=== PATIENT | female | born 1950 | race Caucasian/White ===

== ENCOUNTER 2017-06-25 13:26 | Observation (INO) | payer MEDICARE, OTHER ==
[~2017-06-25] VITALS: Ht 165.1 cm; Wt 58.0 kg
--- NOTE | 2017-06-25 09:20 | MH ---
cc: CARMEN PINEDA DMD DATE OF ADMISSION: 06/25/2017 HISTORY OF PRESENT ILLNESS This is a 67-year-old female who has got a history of basal cell carcinoma that sits on the right side of the right nasofrontal junction extending to the right superior eyelid margin region. The lesion was present for about a year and the patient said that she had the popped out area. She kept on, picked and poked at it for a period of time. She said she had some discomfort to the lesion. She proceeded to remove the lesion several weeks ago, excision of this lesion, advancement and closure. It came back as basal cell carcinoma. However, the deep margin and one of the lateral margins was not clear. So the purpose of this procedure today is to remove this basal cell carcinoma with frozen to make sure that there is no permanent remaining lesion that is there. Benefits, risks and indications of the procedure, procedure in detail and the options of no treatment were all discussed including alternatives with this patient. Risks not limited to any postop pain, infection, bleeding, damage to the adjacent soft tissue, hard tissue, anesthesia complications, numbness, cosmetic defect, further surgeries as required, recurrence of this lesion. All questions and concerns were addressed. PAST MEDICAL HISTORY 1. Basal cell carcinoma which is at the right side of the nasofrontal junction lateral nose and extending to the right superior eyelid region. 2. Hysterectomy. 3. D&C. 4. High cholesterol. PAST SURGICAL HISTORY Hysterectomy. D&C. ANESTHESIA PROBLEMS Denied. GROWTH AND DEVELOPMENT Reports normal. INFECTIOUS DISEASE Denied. Autoimmune disorders denied. MEDICATIONS 1. Vitamin D3. 2. Fish oil. 3. Rosuvastatin. 4. Gingko biloba. 5. Vitamin B12. 6. Coconut oil. 7. Magnesium. ALLERGIES NO KNOWN DRUG ALLERGIES. FAMILY HISTORY Mother with COPD, father dementia, kidney removed due to stones. OCCUPATION She is retired, lives with her . HABITS Denies any tobacco. Alcohol - she drinks wine 5 out of 7 nights. Eating fair. Illicit drugs denied. REVIEW OF SYSTEMS Vitals: Weight 120 pounds, height 5 feet, 5 inches. Denies any significant weight loss. Head: Denies any headaches. Reports some dizziness secondary to vertigo. Denies any injury or any seizures. Eyes: Has some visual disturbances. Wears contacts and glasses. Has a lazy eye on the right side. Denies any double vision, tearing or any blind spots. Nose: Denies any bleeding, obstruction or discharges. Mouth: Denies any dental difficulties, gingival bleeding dentures. Throat: Denies any hoarseness, shortness, any thyroid disease. Lymph Nodes: Denies any local or glandular enlargement. Respiratory: Denies any TB, shortness of breath, cough, asthma, COPD any sleep apnea. Cardiovascular: Denies any pericardial pain, any hypo or hypertension. Denies any murmurs. Denies any shortness of breath on excursion. Denies any edema. Denies any phlebitis. Denies any rheumatic fever, any heart surgery. Gastrointestinal: Denies any gallbladder, IBS or peptic ulcer disease. Genitourinary: Denies any history of kidney disease or any renal disease. Musculoskeletal: Denies any pain, limitation of movement or any muscular weakness. Endocrine: Denies any diabetes mellitus or any growth disturbances. She is on hormone therapy; has pills for menopause. Hematological: Denies any anemia, bleeding tendency or any Rh incompatibility. Neurological: Denies any sensory or motor disturbances. Menstrual: Denies any at this point. PHYSICAL EXAMINATION Vitals: Pulse is 87, blood pressure is 123/83, oxygen saturation of 99%. ASA of 2. General: Alert, awake and oriented x3, in no acute distress. Well-groomed female. Head: Normocephalic. On the nasofrontal junction lateral aspect of the cheek there is a scab from the previous biopsy site, the surgical site. Other than that I do not see any/appreciate any gross erythema or any redness at this point. It is extending right to the superior eyelid margin from the previous site. Good stability of the site at this point. All previous wound margins are well-approximated. The rest of the facial exam appears unremarkable. Eyes: Pupils are equal, round and reactive to light and accommodation. Extraocular movements are intact. Nose: Symmetrical. Mouth: Mallampati II. The tissues are pink and well perfused. Neck: Positive range of movement. No forest involvement noted. Cardiovascular: Regular rate and rhythm. Respiratory: Clear to auscultation bilaterally. Abdomen: Not tender, not distended, soft. GI: Positive bowel sounds. : Deferred. Extremities: Positive range of movement upper extremities and lower extremities. Neurological: Reports some mild hyperesthesia on the right side of the forehead. This is secondary to Extremities: Positive range of movement upper extremities, lower extremities. Neurological: Mild hyperesthesia right forehead secondary to the previous biopsy surgical site. EKG Recent EKG shows normal sinus rhythm. ASSESSMENT AND PLAN This is a female with past history of basal cell carcinoma on the right nasofrontal junction extending to the right superior eyelid margin. The deep margin and one of the lateral margins was not clear. The plan is for (to end). Carmen Pineda DMD [employer] S[employer] PSYCHOLOGIST/SSB /7:49 PM /9:14 AM
[~2017-06-25 13:26] MED LIST: BACITRACIN TOP OINT 15 GM TUBE ONE; COCO1000 PO; CYAN1TAB24 PO; D 50CAP2 PO; DEXAMETHASONE SOD PHOS 4 MG/ML VIAL IV ONE; ESMOLOL HCL 100 MG/10 ML VIAL IV ONE; GINK60TA10 PO; LIDOCAINE 1%/EPINEPHrine 1:100,000 SOLN 30 ML VIAL ONE; LIDOCAINE HCL 1% PF 5 ML SYRINGE OTHER ONE; LIDOCAINE HCL 2% 50 ML VIAL ONE; MAGN250T11 PO; OMEGCAP PO; ONDANSETRON HCL 4 MG/2 ML VIAL IV ONE; PHENYLEPH/NS 1000 MCG/10 ML SYR IV ONE; PROPOFOL 200 MG/20 ML AMP IV ONE; ROCURONIUM INJ 50 MG/5 ML SYRINGE IV PUSH ONE; ROSU1TAB4 PO
[2017-06-25] MEDS ORDERED: LACTATED RINGER'S 1000 ML IV PRN (14:00)
[2017-06-25] MEDS ORDERED: CHLORHEXIDINE GLUCONATE 2 % 1 PACK (2 CLOTHS) TOPICAL PRN (14:00)
[2017-06-25] MEDS ORDERED: SODIUM CHLORID 0.9% 500 ML IV PRN (14:00)
[2017-06-25] MEDS ORDERED: POVIDONE IODINE 5% (ANTISEPSIS KIT) 4 APPLICATIONS EACH NARE PRN (14:00)
[2017-06-25] MEDS ORDERED: METOPROLOL TARTRATE 25 MG TAB PO PRN (14:00)
[2017-06-25] MEDS ORDERED: ceFAZolin 1,000 MG/NS 100 ML IV SCH ×2 (14:00)
[2017-06-25] MEDS ORDERED: ACETAMINOPHEN 1000 MG/100 ML 100 ML IV ONE (15:10)
[2017-06-25] MEDS ORDERED: THROMBIN (TOPICAL) 5,000 UNIT VIAL ONE (17:06)
[2017-06-25] MEDS ORDERED: BALANCED SALT SOLN OPHT IRRIG 15 ML BTL ONE (17:13)
[2017-06-25] MEDS ORDERED: MICROFIBRILLAR COLLAGEN HEMOSTAT 1 GM PKT ONE (17:13)
[2017-06-25] MEDS ORDERED: BUPIVACAINE/EPINEPHRINE 0.5% PF 30 ML VIAL ONE (17:17)
[2017-06-25] MEDS ORDERED: DO NOT ADM ANY ANTICOAGULANT DRUGS PRN (17:54)
[2017-06-25] MEDS ORDERED: *ONDANSETRON 4 MG VIAL PERIprocedural Use ONLY ONE (18:07)
[2017-06-25] MEDS ORDERED: MIDAZOLAM HCL 2 MG/2 ML VIAL ONE (18:12)
--- NOTE | 2017-06-25 18:14 | HHI.PR ---
Immediate Post Op Note Procedure Date: Jun 25, 2017 Pre Op Diagnosis: Basal cell carcinoma - right nasofrontal junction/medial superior eyelid region Post Op Diagnosis: ronnie Surgeon: Daniel Pineda Pressure Tester(s): gianna mcmillan Procedure: excision of lesion right nasofrontal junction/medial superior eyelid region with frozen specimens advancement closure Complications: none Specimen(s) removed: main specimen BCCA frozen sections including deep Estimated blood loss: 3cc Anesthesia: General, Local (1%lidocaine with 1:100,000 epi 4cc) Drains: None Patient to: PACU Patient Condition: Good Date/Time of Procedure: SEE SURGICAL CARE RECORD Daniel Pineda DMD Jun 25, 2017 18:13
[2017-06-25] MEDS ORDERED: *PROMETHAZINE 25 MG/ML VIAL PERIprocedural use ONLY ONE (18:20)
[2017-06-25] MEDS ORDERED: DEXAMETHASONE SOD PHOS 4 MG/ML VIAL ONE (18:35)
[2017-06-25] MEDS ORDERED: ZOFR4TAB3 SL (18:36)
[2017-06-25] MEDS ORDERED: CEPH-460 PO (18:39)
[2017-06-25] MEDS ORDERED: METOCLOPRAMIDE HCL 10 MG/2 ML VIAL ONE (18:45)
[2017-06-25] MEDS ORDERED: LACTATED RINGER S IV ONE (19:15)
[2017-06-25] MEDS ORDERED: DEXAMETHASONE SOD PHOS 20 MG/5 ML VIAL IV ONE (19:15)
[2017-06-25] MEDS ORDERED: NALOXONE HCL 0.4 MG/ML AMP IV PUSH PRN (19:30)
[2017-06-25] MEDS ORDERED: TRIMETHOBENZAMIDE INJ 200 MG/2 ML VIAL IM PRN (19:30)
[2017-06-25] MEDS ORDERED: ACETAMINOPHEN 325 MG TAB PO PRN (19:30)
[2017-06-25] MEDS ORDERED: ONDANSETRON HCL 4 MG/2 ML VIAL IVP PRN (19:30)
[2017-06-25] MEDS ORDERED: SODIUM CHLORIDE 0.9% FLUSH 10 ML FLUSH IV FLUSH PRN (19:30)
[2017-06-25] MEDS ORDERED: PROCHLORPERAZINE INJ 10 MG/2 ML VIAL IV PUSH PRN (19:30)
[2017-06-25] MEDS ORDERED: ACETAMINOPHEN/HYDROcodone 325 MG/5 MG TAB PO PRN (19:45)
[2017-06-25] MEDS: SODIUM CHLOR 0.9% 1000 ML INJ 1,000 ML IV SCH ×2 (20:00→21:00)
[2017-06-25 20:30] VITALS: BP 116/63; PULSE 97; RESP 19; TEMP 97.6; O2SAT 95
[2017-06-25] MEDS: SODIUM CHLORIDE 0.9% FLUSH 10 ML FLUSH IV FLUSH SCH (21:00)
--- NOTE | 2017-06-25 21:10 | PD.CONS ---
HPI Service [facility] Hospitalists . Consult Requested By Dr. Pineda . Reason for Consult Medical management . Primary Care Physician Anup Medrano MD Diagnoses: (1) Basal cell carcinoma (BCC) (2) Intractable nausea and vomiting (3) Pharyngitis History of Present Illness Mrs. Brush is a pleasant 67-year-old female with a history of basal cell carcinoma diagnosed 05/08/2017 and hyperlipidemia who presented for her second excision of a basal cell carcinoma in the right nasofrontal junction extending to the right superior eyelid margin region by Dr. Pineda. Postoperatively she experienced intractable nausea with vomiting and was admitted for observation. [facility] with [facility]. The patient is seen in her hospital room. She reports her initial surgery for the basal cell carcinoma was 05/08/2017, however, the margins were not clear diet that time and she presented today to have her second surgery to clear the margins. She reports that she's been having persistent nausea since the surgery and has a history of postoperative nausea and vomiting following previous surgeries. She states she is still nauseated but that her symptoms have somewhat improved with medications provided in PACU. She is also complaining of throat "irritation"/soreness that is a 5/10 on pain scale. She states her sore throat started in the immediate postoperative period and has persisted since that time; not relieved with cold fluids, not worsened by anything. She denies any pain in the surgical incision area. . Review of Systems Except as stated in HPI: all other systems reviewed are Neg Past Family Social History Allergies: Coded Allergies: No Known Allergies (Unverified , 06/25/17) Past Medical History BSC right nasofrontal junction extending to the right superior eyelid margin region Past Surgical History BSC excision - location: right nasofrontal junction extending to the right superior eyelid margin region 05/08/17 Hysterectomy D&C . Reported Medications Reported Meds & Active Scripts Active Reported Keflex (Cephalexin) 500 Mg Capsule 500 Mg PO Q8H Zofran Odt (Ondansetron Odt) 4 Mg Tab 4 Mg SL Q6HR PRN Ginkgo Biloba (Ginkgo Biloba [place] Extract) 60 Mg Tablet 1 Tab PO DAILY D3 Maximum Strength (Cholecalciferol) 5,000 Unit Cap 5,000 Units PO DAILY B12 (Cyanocobalamin) 1,000 Mcg Tab 1 Tab PO DAILY [place]-3 Fish Oil/Vitamin (Fish Oil-Cholecalciferol) 1,000-1,000 Mg Cap 1 Cap PO DAILY Coconut Oil 1,000 Mg Cap 2 Cap PO DAILY Magnesium Oxide 250 Mg Tab 250 Mg PO DAILY Rosuvastatin (Rosuvastatin Calcium) 5 Mg Tab 5 Mg PO DAILY . Family History Mother with COPD Father with dementia and nephrolithiasis Daughter with skin lesion and biopsy pending Sister with BCC One sister with benign breast mass . Social History Tobacco: has never smoked ETOH: 1 glass of wine a couple of times/week Illicit drugs: denies . Physical Exam Vital Signs Vital Signs Date Time Temp Pulse Resp B/P (MAP) Pulse Ox O2 Delivery O2 Flow Rate FiO2 06/25/17 19:15 88 19 128/69 (88) 95 Room Air 06/25/17 19:00 95 20 128/66 (86) 97 Room Air 06/25/17 18:45 80 17 136/66 (89) 95 Room Air 06/25/17 18:30 85 18 142/80 (100) 97 Room Air 06/25/17 18:15 85 19 113/55 (74) 97 Room Air 06/25/17 18:00 85 19 124/60 (81) 95 Room Air 06/25/17 17:54 97.4 79 20 124/73 (90) 97 Nasal Cannula 2 06/25/17 14:17 97.7 101 20 118/85 (96) 97 Physical Exam GENERAL: This is a very pleasant, well-nourished, well-developed patient, in no apparent distress. SKIN: No rashes, ecchymoses. Cool and dry. Bandage to right nose and eye area is clean dry and intact. Did not disturb postoperative bandage to inspect area. HEAD: Normocephalic. ENT: Nose without bleeding, purulent drainage. NECK: Trachea midline. No JVD or lymphadenopathy. CARDIOVASCULAR: Regular rate and rhythm without murmurs, gallops, or rubs. RESPIRATORY: Clear to auscultation. Breath sounds equal bilaterally. No wheezes , rales, or rhonchi. GASTROINTESTINAL: Bowel sounds are hyperactive. Abdomen soft, non-tender, nondistended. No guarding. MUSCULOSKELETAL: Extremities without clubbing, cyanosis, or edema. No calf tenderness. NEUROLOGICAL: Awake and alert. Motor and sensory grossly within normal limits. Normal speech. . Assessment and Plan Problem List: (1) Intractable nausea and vomiting ICD Code: R11.2 - Nausea with vomiting, unspecified (2) Basal cell carcinoma (BCC) ICD Code: C44.91 - Basal cell carcinoma of skin, unspecified (3) Pharyngitis ICD Code: J02.9 - Acute pharyngitis, unspecified Assessment and Plan Mrs. Brush is a pleasant 67-year-old female with a history of basal cell carcinoma diagnosed 05/08/2017 and hyperlipidemia who presented for her second excision of a basal cell carcinoma in the right nasofrontal junction extending to the right superior eyelid margin region by Dr. Pineda. Postoperatively she experienced intractable nausea with vomiting and was admitted for observation. [facility] hospitalists were consulted for assistance with medical management. Intractable post-operative nausea and vomiting - IV Zofran, IV Compazine, and Tigan IM as needed for nausea or vomiting - NS at 100 cc/hr until patient tolerating p.o. fluids well - Clear liquid diet to be advanced as tolerated BSC excision - location: right nasofrontal junction extending to the right superior eyelid margin region - Acetaminophen 650 mg p.o. q4h prn pain 2 - 5 - [place] 5/325 mg p.o. q4h pain 6 - 10 - Surgical management per Dr. Pineda Pharyngitis - post op - Benzocaine/Menthol lozenges as needed for pain DVT prophylaxis - SCDs/TEDs Thank you, Dr. Pineda, for the consultation. . Discussed Condition With Patient, Dr. Warren, and RN . Matilde Altamirano Jun 25, 2017 21:09
[2017-06-25] MEDS ORDERED: BENZOCAINE 6 MG/MENTHOL 10 MG LOZENGE BUCCAL PRN (21:15)
[2017-06-25] MEDS ORDERED: CEPHALEXIN MONOHYDRATE 500 MG CAP PO SCH (22:00)
[2017-06-26] VITALS: BP 113/60; PULSE 109; RESP 16; TEMP 98.6; O2SAT 95
[2017-06-26] MEDS ORDERED: ceFAZolin 1,000 MG/NS 100 ML IV ONE ×2
[2017-06-26 04:00] VITALS: BP 111/63; PULSE 114; RESP 18; TEMP 98.6; O2SAT 93
[2017-06-26] MEDS: SODIUM CHLOR 0.9% 1000 ML INJ 1,000 ML IV SCH (06:08)
[2017-06-26 07:41] VITALS: BP 105/64; PULSE 95; RESP 17; TEMP 98.6; O2SAT 97
[2017-06-26] MEDS: SODIUM CHLORIDE 0.9% FLUSH 10 ML FLUSH IV FLUSH SCH (09:00)
--- NOTE | 2017-06-26 10:13 | HHI.PR ---
Subjective Remarks tolerated po well no nausea or vomiting very pleased and thankful of the care she received overnight Objective Vitals Vital Signs Date Time Temp Pulse Resp B/P (MAP) Pulse Ox O2 Delivery O2 Flow Rate FiO2 06/26/17 08:45 Room Air 06/26/17 07:41 98.6 95 17 105/64 (78) 97 06/26/17 04:00 Room Air 06/26/17 04:00 98.6 114 18 111/63 (79) 93 06/26/17 00:00 Room Air 06/26/17 00:00 98.6 109 16 113/60 (77) 95 06/25/17 20:30 97.6 97 19 116/63 (80) 95 06/25/17 20:00 Room Air 06/25/17 20:00 92 15 120/63 (82) 94 Room Air 06/25/17 19:30 100 16 129/93 (105) 97 Room Air 06/25/17 19:15 97.8 96 16 120/62 (81) 96 Room Air 06/25/17 19:15 88 19 128/69 (88) 95 Room Air 06/25/17 19:00 95 20 128/66 (86) 97 Room Air 06/25/17 18:45 80 17 136/66 (89) 95 Room Air 06/25/17 18:30 85 18 142/80 (100) 97 Room Air 06/25/17 18:15 85 19 113/55 (74) 97 Room Air 06/25/17 18:00 85 19 124/60 (81) 95 Room Air 06/25/17 17:54 97.4 79 20 124/73 (90) 97 Nasal Cannula 2 06/25/17 14:17 97.7 101 20 118/85 (96) 97 I/O 06/25/17 06/25/17 06/25/17 06/26/17 06/26/17 06/26/17 07:00 15:00 23:00 07:00 15:00 23:00 Intake Total 1300 ml 1100 ml Output Total 2 ml Balance 1298 ml 1100 ml Intake IV Total 1100 ml Other 1300 ml Output Estimated Blood Loss 2 ml # Voids 1 Objective Remarks awake and alert oriented x 3 forehead- post op dressing in place neck supple lungs clear regular rhtyhm abdomen soft extremities no edema Procedures 06/25- s/p excision vbasal cell carcinoma right eyelid A/P Problem List: (1) Intractable nausea and vomiting ICD Code: R11.2 - Nausea with vomiting, unspecified (2) Basal cell carcinoma (BCC) ICD Code: C44.91 - Basal cell carcinoma of skin, unspecified (3) Pharyngitis ICD Code: J02.9 - Acute pharyngitis, unspecified Assessment and Plan Mrs. Brush is a pleasant 67-year-old female with a history of basal cell carcinoma diagnosed 05/08/2017 and hyperlipidemia who presented for her second excision of a basal cell carcinoma in the right nasofrontal junction extending to the right superior eyelid margin region by Dr. Pineda. Postoperatively she experienced intractable nausea with vomiting and was admitted for observation. [facility] hospitalists were consulted for assistance with medical management. Intractable post-operative nausea and vomiting -- resolved. advance diet BSC excision - location: right nasofrontal junction extending to the right superior eyelid margin region - Acetaminophen 650 mg p.o. q4h prn pain 2 - 5 - [place] 5/325 mg p.o. q4h pain 6 - 10 - Surgical management per Dr. Pineda - OP ff up Pharyngitis - post op- improved - Benzocaine/Menthol lozenges as needed for pain DVT prophylaxis - SCDs/TEDs DC today OP ff up with [facility]- [place] OP ff up with Blanca Cason MD Jun 26, 2017 10:13
[2017-06-26] MEDS ORDERED: CEPHALEXIN MONOHYDRATE 500 MG CAP PO SCH (11:00)
[2017-06-26 11:40] VITALS: BP 110/61; PULSE 81; RESP 18; TEMP 97.9; O2SAT 98
--- NOTE | 2017-06-26 13:30 | MP ---
cc: CARMEN PINEDA DMD [facility], DATE OF SURGERY 06/25/2017 PREOPERATIVE DIAGNOSIS Basal cell carcinoma right nasofrontal junction extending to the medial superior eyelid region. POSTOPERATIVE DIAGNOSIS Basal cell carcinoma right nasofrontal junction extending to the medial superior eyelid region. PROCEDURE Excision of lesion right nasofrontal junction, medial superior eyelid region with frozen specimens, and then also with advancement closure. ANESTHESIA General, also 1% lidocaine with 1:100,000 epinephrine times 4 cc. SURGEON Carmen Pineda, YUDI [employer]S COORDINATOR Ryley Sims COMPLICATIONS None ESTIMATED BLOOD LOSS Approximately 3 cc SPECIMENS The main specimen was basal cell carcinoma also frozen sections including the deep margins. DISPOSITION The patient tolerated the procedure, was extubated and taken to the PACU. INDICATIONS FOR THE PROCEDURE This is a 67-year female who presented several months ago with a lesion on the right nasofrontal junction on the medial aspect extending to the medial aspect of the right superior eyelid. I t has been growing for about a year. The patient reports picking on it. Finally, we proceeded and excised the whole lesion. I did my best with closure, however, the margins on the deep 9 margins were not clear extending to the number six o'clock and then again to the 3-6 on the lateral aspect. The deep margin is very involved. It is necessary that the patient undergo the above listed procedure with frozen sections. Benefits, risks indication of the procedure, procedure in detail and the options of no treat including alternatives were discussed with this patient. The risks are not limited to any postop pain, infection, bleeding, damage to the adjacent soft tissues or hard tissue, anesthesia complications, recurrence of the lesion, further surgeries as required, any further cosmetic defect that may require further correction. All questions and concerns were addressed. Consent is signed in the chart. PROCEDURE IN DETAIL FOLLOWS The patient was met perioperatively. Past medical history was updated and no changes were noted. The right side of the operative site was marked. The patient was taken to operating room #10, and put on the table in the supine position. She was intubated orally. Both eyes were taped shut. All pressure points were padded. At this time, a timeout was taken to identify the patient, the site, and the procedures and surgeon were all in agreement. Betadine prep was done over the operative site. The patient draped in a normal sterile fashion. 1% lidocaine with 1:100,000 epinephrine was injected on the operative site. Then using a marking pen, we outlined the plane of incision. Finally following the marked line, the lesion was incised going all the way down to the periosteum, all the way down to the bone. Once it was excised, the specimen was oriented with the following sutures of 2.0, sutures at 12 o'clock long sutures long/long, 3 o'clock short suture, 6 o'clock a long/short suture, 9 o'clock had no sutures. The 12 o'clock, 3 o'clock, 6 o'clock and 9 o'clock including all the deep areas anywhere was all taken for frozen. Pathologist called me back and said everything was clear. At this point, we began to undermine the forehead nasofrontal junction going lateral to the nose right at the dorsum of the nose and then all around to the forehead. We made sure there was not to much tension on the eyelid. Finally, the area was irrigated with saline solution. Any spotted bleeders were closed with the Bovie and also some Avitene soaked in some thrombin was placed into the site. Since the tissue was undermined, 3-0 Vicryl sutures were used deep to help reapproximate the wound and also some 4-0 Vicryl and a 5-0 Vicryl especially near the region of the superior eyelid coming to the medial aspect of the nasofrontal junction. Finally, the skin was now closed with a 5-0 Prolene suture. Mastisol was placed on top and Steri-Strips were placed over the side. A little bit pressure dressing was placed over the forehead. The patient tolerated the procedure well. No complications noted. At the end of the procedure, all sponge and counts were accounted for. Carmen Pineda DMD RRT/MARCIA /6:05 PM /1:02 PM
--- NOTE | 2017-06-26 18:21 | EKG ---
Date Performed: 06/25/2017 Time Performed: 13:55:12 PTAGE: 67 years EKG: Sinus rhythm WITH SINUS ARRHYTHMIA POSSIBLE LEFT ATRIAL ENLARGEMENT POSSIBLE RIGHT VENTRICULAR CONDUCTION DELAY B ORDERLINE ECG NO PREVIOUS TRACING DOCTOR: Maribell Guerra Interpretating Date/Time 06/26/2017 18:18:36
== END 2017-06-26 12:50 | disposition home or self-care (01) ==
LOC: HSDC 13:26 → HSDI 19:27 → INTOOBSV 19:27 → N04B 20:34
PROVIDERS: ADMIT Internal Medicine; ATTEND Internal Medicine
DX: C44.319 Basal cell carcinoma of skin of other parts of face (principal); I49.8 Other specified cardiac arrhythmias
CPT/HCPCS: 00300; 14040; 88305; 88331; 93005; 96361; 96365; G0378; J0131; J0690; J1100; J2250; J2370; J2405; J2550; J2765; J3010; J7030